=== PATIENT | male | born 1985 | race Caucasian/White ===

== ENCOUNTER 2019-12-27 10:18 | Emergency (ER) | payer BC ==
[~2019-12-27] VITALS: Wt 140.6 kg
[~2019-12-27 10:18] MED LIST: BIAXIN500 MG PO; CLARITIN10 MG PO; FLEXERIL10 MG PO; LEXAPRO10 MG PO; MEDROL DOSEPAK4 MG PO; MOTRIN800 MG PO; NKHM; PROVENTIL0.09 MG/AC IH; TRAMADOL HCL50 MG PO
== END 2019-12-27 10:31 | disposition home or self-care (01) ==
LOC: ED 10:18
DX: Z02.79 Encounter for issue of other medical certificate (principal)